=== PATIENT | female | born 1950 ===

== ENCOUNTER 2019-01-20 05:05 | Day surgery (SDC) | payer OTHER ==
[~2019-01-20 05:05] MED LIST: COZAAR100 MG PO; HUMOLOG; HUMU; NORVASC5 MG PO; TIROSINT125 MCG PO; ZOCOR20 MG PO; [UNRECOGNIZED DRUG - OTHER] PO
[2019-01-20] MEDS ORDERED: PERCOCET 5-3251 EACH PO (08:46)
== END 2019-01-20 11:10 | disposition home or self-care (01) ==
LOC: CIR.AMB 05:05
DX: C73 Malignant neoplasm of thyroid gland (principal)

== ENCOUNTER 2022-07-24 07:29 | Day surgery (SDC) | payer OTHER ==
[~2022-07-24] VITALS: Ht 167.6 cm; Wt 70.3 kg
[~2022-07-24 07:29] MED LIST changes: +JARDIANCE10 MG PO; +PERCOCET 5-3251 EACH PO; +VALSARTAN160 MG PO; +XELPROS2.5 ML OP
== END 2022-07-24 17:15 | disposition home or self-care (01) ==
LOC: CIR.AMB 07:29
PROVIDERS: ATTEND Colon & Rectal Surgery
DX: D12.9 Benign neoplasm of anus and anal canal (principal); D12.8 Benign neoplasm of rectum; K92.1 Melena; K64.8 Other hemorrhoids; Z20.822 Contact with and (suspected) exposure to COVID-19; I10 Essential (primary) hypertension